=== PATIENT | female | born 1935 | race Caucasian/White ===

== ENCOUNTER → 2017-05-13 | Outpatient (CLI) | payer MEDICARE, OTHER ==
[2015-12-13 13:59] VITALS: BP 175/75
[~2017-05-13] MED LIST: AMLODIPINE BESYL5 MG PO; ASPIR LOW81 MG PO; BP MED; FENTANYL 25 MCG TD; FLECAINIDE ACET50 MG PO; HCTZ 25MG25 MG PO; IBUPROFEN800 MG PO; POTASSIUM CH2 MEQ/ML PO; ULTRAM50 M1 PO
== END ==
LOC: RAD 12:53
DX: R26.89 Other abnormalities of gait and mobility (principal); I48.0 Paroxysmal atrial fibrillation

== ENCOUNTER → 2021-01-31 | Outpatient (CLI) | payer MEDICARE | LOC: AMSURD 12:35 | DX: I48.0 Paroxysmal atrial fibrillation (principal); I44.0 Atrioventricular block, first degree ==

== ENCOUNTER → 2021-02-21 | Outpatient (CLI) | payer MEDICARE | LOC: MAMMO 10:00 | DX: Z13.820 Encounter for screening for osteoporosis (principal); M85.80 Other specified disorders of bone density and structure, unspecified site; Z78.0 Asymptomatic menopausal state ==

== ENCOUNTER → 2023-04-02 | Outpatient (CLI) | payer MEDICARE | LOC: AMSURD 11:03 | DX: I48.0 Paroxysmal atrial fibrillation (principal) ==

== ENCOUNTER → 2023-09-10 | Outpatient (CLI) | payer MEDICARE ==
[~2023-09-10] MED LIST changes: +LOSARTAN POTAS100 MG PO; +METOPROLOL SUCC25 M1 PO
== END ==
LOC: RAD 10:10
DX: M47.816 Spondylosis without myelopathy or radiculopathy, lumbar region (principal); M47.817 Spondylosis without myelopathy or radiculopathy, lumbosacral region; M48.061 Spinal stenosis, lumbar region without neurogenic claudication